=== PATIENT | male | born 1965 | race African-American/Black ===

== ENCOUNTER 2024-01-19 04:58 | Emergency (ER) | payer OTHER ==
[~2024-01-19] VITALS: Ht 182.9 cm; Wt 100.0 kg
[2024-01-19 05:01] VITALS: O2SAT 95
[2024-01-19 05:16] VITALS: TEMP 98.6
[2024-01-19] MEDS: CLONIDINE 0.1MG TABLET PO NR (05:43)
[2024-01-19] MEDS: ONDANSETRON 4MG ODT PO ONE (05:43)
[2024-01-19] MEDS: FAMOTIDINE 20MG/2ML VIAL IV ONE (05:43)
[2024-01-19 05:44] LABS: HEMATOCRIT 40.3 % (42.0-52.0); HEMOGLOBIN 13.6 g/dL (14.0-18.0); MEAN CORPUSCULAR HEMOGLOBIN 27.5 pg (28.0-32.0); MEAN CORPUSCULAR HGB CONC 33.7 g/dL (31.0-37.0); MEAN CORPUSCULAR VOLUME 81.5 fL (80.0-94.0); PLATELET 286 x1000/uL (130-400); RED BLOOD CELL COUNT 4.95 mill/uL (4.7-6.1); RED CELL DISTRIBUTION WIDTH 14.2 % (11.6-14.6); WHITE BLOOD COUNT 11.2 x1000/uL (4.5-11.0)
[2024-01-19] MEDS: CLONIDINE 0.2MG TABLET PO ONE (05:48)
[2024-01-19 05:53] LABS: CHLORIDE 107 mEq/L (98-107); SODIUM 141 mEq/L (136-145)
[2024-01-19 05:54] LABS: CALCIUM 8.8 mg/dL (8.7-10.4); CARBON DIOXIDE 25 mEq/L (21-32)
[2024-01-19 05:59] LABS: CREATININE 1.1 mg/dL (0.6-1.3); GLUCOSE 147 mg/dL (70-105); UREA NITROGEN BLOOD 17 mg/dL (9-23)
[2024-01-19 06:01] LABS: ALANINE AMINOTRANSFERASE 56 IU/L (10-49); ALBUMIN 4.4 g/dL (3.2-4.8); ASPARTATE AMINOTRANSFERASE 30 IU/L (<34); BILIRUBIN TOTAL 0.4 mg/dL (0.1-1.0)
[2024-01-19 06:02] LABS: PROTEIN TOTAL 7.7 g/dL (6.0-8.3)
[2024-01-19 07:07] VITALS: BP 167/98; PULSE 86; RESP 13
[2024-01-19] MEDS ORDERED: ONDA4TAB11 PO (09:08)
[2024-01-19] MEDS ORDERED: FAMO20TA8 MT (09:08)
== END 2024-01-19 08:54 | disposition home or self-care (01) ==
LOC: ER 04:58
DX: R11.10 Vomiting, unspecified (principal); J45.909 Unspecified asthma, uncomplicated; E11.9 Type 2 diabetes mellitus without complications; E78.00 Pure hypercholesterolemia, unspecified; I10 Essential (primary) hypertension
CPT/HCPCS: 80053; 85027; 36415; 93005; 96374; 99284; Q0162; J3490; Z7610 ×3